=== PATIENT | male | born 1990 | race American Indian/Alaskan Native ===

== ENCOUNTER 2021-03-15 12:35 | Emergency (ER) | payer SELFPAY ==
[~2021-03-15] VITALS: Ht 165.1 cm; Wt 68.0 kg
[2021-03-15] MEDS ORDERED: PREVACID15 MG PO (13:06)
[2021-03-15] MEDS ORDERED: ZITHROMAX250 MG PO (15:49)
[2021-03-15] MEDS ORDERED: PROMETHAZINE V473 M2 PO (15:49)
== END 2021-03-15 15:59 | disposition home or self-care (01) ==
LOC: ED 12:35
DX: J40 Bronchitis, not specified as acute or chronic (principal); Z20.822 Contact with and (suspected) exposure to COVID-19; Z79.899 Other long term (current) drug therapy
CPT/HCPCS: 71045; 99283-25; U0003

== ENCOUNTER 2021-03-28 15:07 | Emergency (ER) | payer SELFPAY ==
[~2021-03-28] VITALS: Ht 165.1 cm; Wt 68.0 kg
[~2021-03-28 15:07] MED LIST: PREVACID15 MG PO; PROMETHAZINE V473 M2 PO; ZITHROMAX250 MG PO
--- OUTSIDE RECORDS SUMMARY | 2021-03-28 15:10 | XMS ---
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 Renata has no Care Guidelines for this patient. [place] VIS[facility] (12 MO.) [facility] T[facility] NOTE: Visits indicate total known visits. ED/C VISIT TRACKING (12 MO.) 03/28/2021 15:07 [facility] [place] TYPE: Emergency COMPLAINT: - R SIDE CHEST/LUNG PAIN 03/15/2021 12:[address] 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
--- NOTE | 2021-03-29 18:46 | EKG ---
[facility] [address] [place], [place] [address] Signed Normal sinus rhythm Rightward axis Borderline ECG No previous ECGs available Confirmed by ELSY MOCK DO ([id number]) on 03/29/2021 6:46:02 PM Electronically Signed By: ELSY MOCK DO 03/29/21 1846 PATIENT NAME: SUNITA MORATAYA Electrocardiogram DATE OF : 89 PHYSICIAN: ELSY MOCK DO REPORT #: [id number] REPORT IS CONFIDENTIAL AND NOT TO BE RELEASED WITHOUT AUTHORIZATION
== END 2021-03-28 18:17 | disposition home or self-care (01) ==
LOC: ED 15:07
DX: R07.89 Other chest pain (principal); K21.9 Gastro-esophageal reflux disease without esophagitis; Z20.822 Contact with and (suspected) exposure to COVID-19; Z79.899 Other long term (current) drug therapy
CPT/HCPCS: 71045; 93005; 93010; 99285-25; U0003